=== PATIENT | female | born 1955 | race Caucasian/White ===

== ENCOUNTER → 2017-02-24 | Outpatient (CLI) | payer OTHER ==
[2017-02-24 08:57] LABS: C-REACTIVE PROTEIN 1.7 mg/dL (0.0-0.9)
[2017-02-24 09:01] LABS: PARTIAL THROMBOPLASTIN TIME 35.5 SECONDS (26.0-37.0)
[2017-02-24 09:24] LABS: THYROID STIMULATING HORMONE 2.37 uIU/mL (0.465-4.680)
[2017-02-24 23:27] LABS: IMMUNOGLOBULIN A 203 mg/dL (69-517); IMMUNOGLOBULIN G 1293 mg/dL (552-1631); IMMUNOGLOBULIN M, QUANTITATIVE 157 mg/dL (33-293)
[2017-02-24 23:55] LABS: .ANTI-MICROSOMAL ANTIBODY <3 IU/mL (0-6); .THYROGLOBULIN AB <3 IU/mL (0-5); CORTISOL, AM (0800) 10 ug/dL (3-20); DHEA (SULFATE) 149 mcg/dL (30-182); T3 FREE (TRI-IODOTHYRONINE) 2.9 pg/mL (1.7-3.7)
[2017-02-25 12:30] LABS: ANTI-THROMBIN III 91 % (72-128)
[2017-02-25 12:33] LABS: PROTEIN C ACTIVITY 87 % (70-150)
[2017-02-25 12:37] LABS: PROTEIN S ACTIVITY 90 % (65-149)
[2017-02-25 13:49] LABS: FACTOR II ACTIVITY 94 % (72-140)
[2017-02-26 10:44] LABS: IMMUNO G SUBCLASS 1 632 mg/dL (()); IMMUNO G SUBCLASS 2 534 mg/dL (()); IMMUNO G TOTAL 1260 mg/dL (())
== END ==
LOC: COL.LAB 07:25
DX: A69.20 Lyme disease, unspecified (principal); Z79.899 Other long term (current) drug therapy; D68.59 Other primary thrombophilia; E34.9 Endocrine disorder, unspecified

== ENCOUNTER → 2017-03-01 | Outpatient (CLI) | payer OTHER | LOC: COL.LAB 07:47 | DX: D68.59 Other primary thrombophilia (principal) ==

== ENCOUNTER → 2017-09-23 | Outpatient (CLI) | payer OTHER ==
[2017-09-23 14:59] LABS: HEMATOCRIT 36.4 % (37.0-47.0); HEMOGLOBIN 12.5 g/dl (12.5-16.0)
[2017-09-23 15:17] LABS: CALCIUM 8.8 mg/dL (8.4-10.2); CREATININE, serum 0.75 mg/dL (0.52-1.25); POTASSIUM 4.3 mmol/L (3.4-5.0)
== END ==
LOC: ZLAB.STJ 14:53
PROVIDERS: Internal Medicine
DX: I16.1 Hypertensive emergency (principal)

== ENCOUNTER 2020-09-12 12:57 | Day surgery (SDC) | payer MEDICARE ==
[~2020-09-12] VITALS: Ht 157.5 cm; Wt 77.7 kg
[2020-09-12 13:56] VITALS: BP 163/82; PULSE 67; TEMP 98.1
[2020-09-12] MEDS ORDERED: NORVASC 10MG10 MG PO (13:58)
[2020-09-12] MEDS ORDERED: COZAAR100 MG PO (13:59)
[2020-09-12] MEDS ORDERED: TIGER BALM PAT1 EAC1 TP (14:01)
[2020-09-12] MEDS ORDERED: IMODIUM 2MG CAPS2 MG PO (14:02)
[2020-09-12] MEDS ORDERED: TYLENOL 8 HR PO (14:02)
[2020-09-12 17:30] VITALS: BP 138/78; PULSE 55; TEMP 97.5
--- NOTE | 2020-09-12 17:30 | NUR ---
Pt to [facility] via cart from PACU. Pt awake and alert. VSS. Pt up to restroom. Voids without difficulties. Pt back to room. Muffin, juice and jello given. in room. Call light within reach.
[2020-09-12 17:45] VITALS: BP 150/76; PULSE 52
--- NOTE | 2020-09-12 17:45 | NUR ---
Pt continues to rest. Pt resting. Will continue to monitor.
[2020-09-12 18:00] VITALS: BP 146/72; PULSE 54
--- NOTE | 2020-09-12 18:00 | NUR ---
Pt continues to rest. Pt tolerating food and fluids without diffiuclties. Call light within reach.
--- NOTE | 2020-09-12 18:15 | NUR ---
Pt up to restroom with stand by assistance. Pt voids without difficulties. Pt back to room. IV site discontinued with all parts intact. Pt up to dress. Call light within reach.
--- NOTE | 2020-09-12 18:30 | NUR ---
Discharge instructions reviewed. Pt voices understanding.
--- NOTE | 2020-09-12 18:45 | NUR ---
Pt escorted to private car via wheel chair. Pt accompanied home by her .
== END 2020-09-12 18:45 | disposition home or self-care (01) ==
LOC: SDCO 12:57
DX: N13.5 Crossing vessel and stricture of ureter without hydronephrosis (principal); R93.41 Abnormal radiologic findings on diagnostic imaging of renal pelvis, ureter, or bladder; N81.10 Cystocele, unspecified; M06.9 Rheumatoid arthritis, unspecified; I10 Essential (primary) hypertension; Z91.040 Latex allergy status; Z86.73 Personal history of transient ischemic attack (TIA), and cerebral infarction without residual deficits
CPT/HCPCS: C1769; J0690; J1885; J2405; J2704; J7120; Q9967

== ENCOUNTER 2020-11-24 09:25 | Inpatient (IN) | payer MEDICARE ==
[~2020-11-24] VITALS: Ht 157.6 cm; Wt 77.9 kg
[~2020-11-24 09:25] MED LIST: COZAAR100 MG PO; IMODIUM 2MG CAPS2 MG PO; NORVASC 10MG10 MG PO; TIGER BALM PAT1 EAC1 TP; TYLENOL 8 HR PO
[2020-12-09] VITALS (11 sets, daily range): BP systolic 100–136; BP diastolic 58–81; PULSE 16–88; TEMP 97.5–98.3
[2020-12-09 06:20] LABS: BASO # 0.1 K/mm3 (0.0-0.2); BASO % 0.4 % (0.0-2.0); EOS # 0.4 K/mm3 (0.0-0.7); EOS % 2.9 % (0-4.0); GRAN # 8.5 K/mm3 (1.4-6.5); GRAN % 70.7 % (42.2-75.2); HEMATOCRIT 40.2 % (37.0-47.0); HEMOGLOBIN 13.6 g/dl (12.5-16.0); LYMPH # 2.4 K/mm3 (1.2-3.4); LYMPH % 20.3 % (20.0-51.0); MEAN CELL VOLUME 90 fl (80.0-100.0); MEAN CORPUSCULAR HEMOGLOBIN 30 pg (27.0-31.0); MEAN CORPUSCULAR HGB CONC 34 g/dl (33.0-37.0); MEAN PLATELET VOLUME 9.7 fl (7.4-10.4); MONO # 0.7 K/mm3 (0.1-0.6); MONO % 5.4 % (1.7-9.3); PLATELET COUNT 281 K/mm3 (130-400); RED BLOOD COUNT 4.49 M/mm3 (4.10-5.30); REDCELL DISTRIBUTION WIDTH-CV 12.5 % (11.5-14.5)
[2020-12-09 13:34] LABS: CALCIUM 9.2 mg/dL (8.4-10.2); CREATININE, serum 0.7 mg/dL (0.57-1.11); POTASSIUM 3.9 mmol/L (3.4-5.0)
[2020-12-09 13:35] LABS: ALBUMIN 3.9 gm/dL (3.5-5.0); BILIRUBIN,TOTAL 0.6 mg/dL (0.2-1.2); TOTAL PROTEIN 7.1 gm/dL (6.4-8.2)
[2020-12-10 03:37] VITALS: BP 127/62; PULSE 70; TEMP 97.9
[2020-12-10 06:54] LABS: HEMOGLOBIN 12.1 g/dl (12.5-16.0)
[2020-12-10 07:10] LABS: CREATININE, serum 1.03 mg/dL (0.57-1.11); POTASSIUM 4.1 mmol/L (3.5-4.5)
[2020-12-10 08:10] VITALS: BP 135/73; PULSE 67; TEMP 97.8
[2020-12-10 10:30] VITALS: BP 142/72; PULSE 72; TEMP 98.5
[2020-12-10 16:00] VITALS: BP 131/69; PULSE 69; TEMP 98.7
[2020-12-10 19:13] VITALS: BP 117/84; PULSE 73; TEMP 98.4
[2020-12-11 00:17] VITALS: BP 167/84; PULSE 75; TEMP 97.4
[2020-12-11 04:51] VITALS: BP 142/72; PULSE 67; TEMP 98.4
[2020-12-11 06:57] LABS: CALCIUM 9.2 mg/dL (8.4-10.2); CREATININE, serum 1.01 mg/dL (0.57-1.11); POTASSIUM 3.8 mmol/L (3.5-4.5)
[2020-12-11 08:06] VITALS: BP 140/75; PULSE 80; TEMP 98.1
[2020-12-11 12:30] VITALS: BP 122/66; PULSE 72; TEMP 98.9
[2020-12-11 15:39] VITALS: BP 135/71; PULSE 67; TEMP 97.8
[2020-12-11] MEDS ORDERED: ZOFRAN 4MG T4 MG/TAB PO (16:47)
[2020-12-11] MEDS ORDERED: NORCO 325 MG-51 TAB PO (16:47)
== END 2020-12-11 17:26 | disposition home or self-care (01) | DRG 658 ==
LOC: SURG 12-09 05:22 → INPTSU 12-09 05:22 → SURG 12-09 07:30
PROVIDERS: ADMIT Urology
PROC: 0TT14ZZ Resection of Left Kidney, Percutaneous Endoscopic Approach (ICD-10-PCS; principal; 2020-12-11)
PROC: 0TB74ZZ Excision of Left Ureter, Percutaneous Endoscopic Approach (ICD-10-PCS; 2020-12-11)
PROC: 8E0W4CZ Robotic Assisted Procedure of Trunk Region, Percutaneous Endoscopic Approach (ICD-10-PCS; 2020-12-11)
DX: C65.2 Malignant neoplasm of left renal pelvis (principal); M19.90 Unspecified osteoarthritis, unspecified site; G51.0 Bell's palsy; M79.7 Fibromyalgia; I10 Essential (primary) hypertension; M06.9 Rheumatoid arthritis, unspecified; Z86.73 Personal history of transient ischemic attack (TIA), and cerebral infarction without residual deficits
CPT/HCPCS: A4314; A9284; J0690; J1100; J1170; J1650; J2250; J2405; J2704; J2795; J3010; J7120